=== PATIENT | female | born 1950 | race Caucasian/White ===

== ENCOUNTER 2017-02-02 08:47 | Day surgery (SDC) | payer BC, OTHER ==
--- NOTE | 2017-02-01 10:27 | HISTORY AND PHYSICAL ---
ADMITTED: 02/02/2017 HISTORY OF PRESENT ILLNESS: The patient is a 66-year-old female who presents with a painful left foot. States the pain radiates between her second and third toe. Pain in the great toe joint as well as in the fifth toe. States she has had previous surgery on her left foot several years ago by a provider no longer in the area. MEDICAL/SURGICAL HISTORY: Her past medical history includes a history of anemia, asthma. Surgical history: Hysterectomy, hernia, gallbladder removed, and the bunion, left foot. PRIMARY CARE PROVIDER: TOO Chaparro MEDICATIONS: 1. Tramadol 50mg daily 2. Estradiol 0.5mg daily 3. Omeprazole 20mg daily 4. Phentermine 10mg daily ALLERGIES: 1. REPORTS NO KNOWN DRUG OR FOOD ALLERGY. SOCIAL HISTORY: She is . Does not smoke. Drinks socially. Employed at [employer]. FAMILY HISTORY: Noncontributory to chief complaint. REVIEW OF SYSTEMS: Ten-point review of systems positive for arthritis and joint pain. PHYSICAL EXAMINATION: GENERAL: The patient is alert and oriented x3. HEAD AND NECK: PERRLA. Normocephalic. HEART: Regular rate and rhythm. Regular S1 and S2. No murmurs or gallops. RESPIRATORY: Lungs clear to auscultation. No wheezing, rhonchi, or rales. No rubs. ABDOMEN: Soft, tender, nondistended. No palpable masses. Normal tones. LOWER EXTREMITY: Vascular: DP and PT pulses are palpable. Skin texture and turgor within normal limits. NEUROLOGIC: Deep tendon reflexes and epicritic sensations are intact. Muscle strength, dorsiflexion, plantar flexion, inverters, everters and intrinsics 4/5. Significant decreased range of motion at the left first MTP with crepitus. Positive Tinel and Johnson sign with compression of the second intermetatarsal space, left foot. The fifth toe is rotated in the frontal and transverse plane. There is a prominent lateral projection of the fifth metatarsal head. LAB/IMAGING: Taken on an OrthoScan weightbearing platform revealed significant osteophytes and spurring of the left first MTP, noted decreased intermetatarsal space between the second and third metatarsal head, left, as well as a prominent lateral head and condyle of the fifth metatarsal head and a contracted fifth digit. IMPRESSION: 1. Hallux rigidus, grade 2; hammertoe deformity, fifth digit, left 2. Neuroma-like symptoms, second intermetatarsal space, left, and a tailor bunion PLAN: The patient is scheduled for an outpatient procedure consisting of a distal first MTP arthrodesis with hardware removal, removal of a neuroma, and arthroplasty of the fifth digit as well as a tailor bunion and a bone graft harvesting. She is well aware of the planned procedure and convalescence associated with surgery. No contraindications to surgery at this time. Surgery is scheduled for 02/02/2017 at [facility].
[~2017-02-02] VITALS: Ht 154.9 cm; Wt 73.8 kg
[~2017-02-02 08:47] MED LIST: ACETAMINOPHEN500 MG PO; ESTRADIOL0.5 MG PO; FLONASE AL50 MCG/ACT; MULTIVITAMIN1 TAB PO; OMEPRAZOLE20 M1 PO; TRAMADOL HCL50 MG PO; VITAMIN D-31000 UNIT PO
[2017-02-02] MEDS ORDERED: PERCOCET1 TA4 PO (14:45)
[2017-02-02] MEDS ORDERED: ZOFRAN4 MG PO (14:45)
--- NOTE | 2017-02-02 14:47 | Provider's Discharge Care Plan ---
Problem, Goal, Plan Problem List 1. Other hammer toe(s) (acquired), left foot Goals: Improve function Instructions: Follow up as directed
--- NOTE | 2017-02-02 14:47 | Provider's Discharge Care Plan ---
Problem, Goal, Plan Problem List 1. Other hammer toe(s) (acquired), left foot Goals: Improve function Instructions: Follow up as directed
--- NOTE | 2017-02-02 15:32 | DIAGNOSTIC IMAGING REPORT ---
PROCEDURE: XR FOOT 3 VIEWS - LEFT INDICATION: POST-OP- IN PACU TECHNIQUE: Three views. COMPARISON: None. FINDINGS: Fusion of the first MTP joint with a dorsal plate and several screws. There is normal alignment of the first ray. Resection of the fifth proximal phalanx distally. Posterior splint in place. IMPRESSION: 1. Surgical fusion of the first MTP joint with normal alignment of the first ray 2. Resection of the left fifth proximal phalanx distally.
[2017-02-02 15:53] VITALS: BP 119/63
[2017-02-02 16:08] VITALS: BP 111/53
[2017-02-02 16:22] VITALS: BP 115/63
--- NOTE | 2017-02-02 19:59 | OPERATIVE REPORT ---
DATE OF SURGERY: 02/02/2017 SURGEON: Ramez Martin DPM PREOPERATIVE DIAGNOSES: 1. Hallux rigidus 2. Grade 3 neuroma, second intermetatarsal space 3. Painful hardware 4. Tailor's bunion 5. Hammertoe deformity, fifth digit, left foot POSTOPERATIVE DIAGNOSES: 1. Hallux rigidus 2. Grade 3 neuroma, second intermetatarsal space 3. Painful hardware 4. Tailor's bunion 5. Hammertoe deformity, fifth digit, left foot PROCEDURES PERFORMED: 1. First metatarsophalangeal arthrodesis with bone graft placement 2. Removal of hardware 3. Removal of neuroma, second intermetatarsal space 4. Tailor's bunion 5. Arthroplasty, fifth digit ANESTHESIA: General. HEMOSTASIS: Achieved by pneumatic ankle tourniquet inflated to 250 mmHg pressure. TOURNIQUET TIME: Total tourniquet time 119 minutes. MATERIALS: 3-0 and 4-0 Polysorb, 4-0 Surgipro, 4-0 Biosyn and one Arthrex MTP plate with 112, 114, 116 and 118 mm, 2.4 compression screws and one 3.5 headless compression screw 24 mm in length. COMPLICATIONS: None. CONDITION: The patient tolerated anesthesia, procedure well. INDICATIONS: The patient is a 66-year-old female who had a bunion carried out several years ago by Dr. Holt and was doing great for several years. The joint became very painful, stiff, swollen. She had a painful neuroma, as well as a painful hammertoe and a tailor's bunion. She is well aware of the planned procedure of a removal of hardware first MTP arthrodesis, removal of neuromas, arthroplasty and a tailor's bunion, as well as a harvesting of bone graft. There are no contraindications to surgery at this time. She is well aware of the convalescent period. SURGICAL TECHNIQUE: The patient was brought to the operating room, placed on operating table in a supine position. At this time, a general anesthetic was administered, pneumatic tourniquet was then placed above the left ankle. Left lower extremity was prepped and draped in normal sterile fashion. An intraoperative pause was carried out for positive identification, proper limb, consent form verified and confirmed. At this time, an Esmarch bandage was then utilized to exsanguinate the limb, tourniquet was then inflated. Attention was then directed to procedure #1. First MTP arthrodesis: At this time, a linear incision was made overlying the first MTP from the proximal aspect of the surgical neck first metatarsal, extending to the distal aspect of the proximal phalanx. It was deepened by sharp and blunt dissection. Meticulous dissection was carried out, releasing all adhering fibers and previous scar tissue from previous bunion surgery. The previous Synthes screws were visualized and they were removed in toto. The joint was then prepped and denuded with corresponding reamers of the head of the first metatarsal and base of the proximal phalanx of the great toe. The toe was then aligned properly in the sagittal and transverse plane. The AO techniques were carried out with a 1 headless compression screw from a distal medial aspect of the proximal phalanx, going across the first metatarsal base laterally stably fixating the great toe of the joint. There was a slight gap noted laterally; therefore, a bone graft was necessary. At this time, attention was then directed to the posterior lateral calcaneus where a small vertical incision was made. A periosteal elevator was used and a 6 mm bone harvester was utilized to remove a plug of cortical and cancellous bone. It was then morselized with a bone rongeur and then the lateral aspect of the gapping was filled with that, as well as 1 mL of DBM bone graft. The harvest site was then retrofilled with the remaining DBM bone graft. Attention was redirected dorsally to the first MTP, where an Arthrex plate was affixed dorsally then secured to the bone with the aforementioned screws, 2 distal, 2 proximal, stably fixating the fusion site, verified under fluoroscopy for placement and approximation. It was in anatomic position. The area was flushed. Capsule and periosteum were then reapproximated with 3-0 Polysorb, subcutaneous with 4-0 and skin edges reapproximated in running fashion with 4-0 Biosyn. Attention was then directed to next procedure. Removal of neuroma, second intermetatarsal space: At this time, a linear incision was made dorsally at the second intermetatarsal space and deepened by sharp and blunt dissection. A smooth laminar office machine technician was then placed. The deep transverse metatarsal ligament was released. The hypertrophied nerve was visualized and removed, was released of the medial, lateral branches and then transected proximal to the metatarsal heads. Specimen was then passed off from forceps to formalin. The area was flushed. Subcutaneous tissue was reapproximated with 4-0 Polysorb and skin edges reapproximated in running fashion with 4-0 Biosyn. Attention was then directed to next procedure. Arthroplasty fifth digit: At this time, 2 semi-elliptical incisions were made overlying the proximal interphalangeal joint, extending from proximal lateral to distal medial, ellipsing. Ellipsed skin was removed. The long extensor tendon was transected and reflected. The head of the proximal phalanx was excised. The area was flushed. Long extensor tendon was then reapproximated in a [id number] fashion with 3-0 Polysorb. Skin edges were then reapproximated in a running fashion with 4-0 Surgipro. Next , attention was directed to next procedure. Tailor's bunionectomy: At this time, a linear incision was made overlying the fifth MTP, where the incision was carried down to bone. Capsular incision was made. It was reflected with periosteal elevator. The hypertrophied eminence of the fifth metatarsal was resected. It was smoothed down to a smooth surface, hand-held rasp. The area was flushed. Capsule and periosteum were reapproximated with 3-0 Polysorb, subcutaneous with 4-0, and the skin edge was reapproximated in running fashion with 4-0 Biosyn. The bone harvest site was flushed and reapproximated with 4-0 Surgipro. The areas were then locally anesthetized. A tourniquet was released at 119 minutes with good digital perfusion and reactive hyperemia. Light compressive dressing was applied, as well as a prefabricated Ortho-Glass splint with the foot at 90 degrees of lower leg. The patient tolerated anesthesia and procedures well, left the operating room with vital signs stable. While in recovery, written instruction with nonweightbearing at all times and aid of a knee scooter. Prognosis is guarded. She will be discharged home in stable condition.
== END 2017-02-02 18:20 | disposition home or self-care (01) ==
LOC: OR SRH 08:47 → SCU SRH 08:48 → OR SRH 10:00 → CC SRH 16:06 → OR SRH 18:20
PROVIDERS: Podiatrist
PROC: 0QBR0ZZ Excision of Left Toe Phalanx, Open Approach (ICD-10-PCS; principal; 2017-02-02 11:30)
PROC: 01BH0ZZ Excision of Peroneal Nerve, Open Approach (ICD-10-PCS; principal; 2017-02-02 11:30)
PROC: 0SGN04Z Fusion of Left Metatarsal-Phalangeal Joint with Internal Fixation Device, Open Approach (ICD-10-PCS; principal; 2017-02-02 11:30)
PROC: 0QBM0ZZ Excision of Left Tarsal, Open Approach (ICD-10-PCS; principal; 2017-02-02 11:30)
DX: M20.22 Hallux rigidus, left foot (principal); G57.62 Lesion of plantar nerve, left lower limb; M20.42 Other hammer toe(s) (acquired), left foot; M21.622 Bunionette of left foot; J45.909 Unspecified asthma, uncomplicated